=== PATIENT | female | born 1965 | race Caucasian/White ===

== ENCOUNTER → 2024-03-05 14:07 | Outpatient (REF) | payer BC, SELFPAY | LOC: HWWDC 14:07 | PROVIDERS: ATTENDING PHYSICIAN Obstetrics & Gynecology Gynecology; FAMILY PHYSICIAN Nurse Practitioner Family | DX: Z12.31 Encounter for screening mammogram for malignant neoplasm of breast (principal) | CPT/HCPCS: 77063; 77067 ==

== ENCOUNTER → 2024-03-18 08:30 | Outpatient (REF) | payer BC, SELFPAY | LOC: WDC 08:30 | PROVIDERS: ATTENDING PHYSICIAN Obstetrics & Gynecology Gynecology; FAMILY PHYSICIAN Nurse Practitioner Family | DX: R92.8 Other abnormal and inconclusive findings on diagnostic imaging of breast (principal) | CPT/HCPCS: 77065 ==

== ENCOUNTER 2024-06-11 16:30 | Emergency (ER) | payer BC, SELFPAY ==
[2024-06-11 16:40] VITALS: BP 126/100
[2024-06-11 17:09] LABS: % Basophils 0.4 % (0-2); % Eosinophils 0.4 % (0-6); % Lymphocytes 17.1 % (20.5-51.1); % Monocytes 7.6 % (1.7-9.3); % Neutrophils 74.5 % (42.2-75.2); Absolute Lymphocytes 0.9 10^3/uL (1.2-3.4); Absolute Monocytes 0.4 10^3/uL (0.1-0.6); Absolute Neutrophils 3.8 10^3/uL (1.4-6.5); Hematocrit 43.1 % (37.0-47.0); Hemoglobin 14.8 g/dL (12.0-16.0); Mean Corp Hgb Conc. 34.3 g/dL (33.0-37.0); Mean Corpuscular Hgb 32.8 pg (27.0-31.0); Mean Corpuscular Volume 95.6 fL (81.0-99.0); Mean Platelet Volume 10.7 fL (7.4-10.4); Nucleated Red Blood Cells % 0 %; Platelet Count 232 10^3/uL (130-400); Red Blood Cell Count 4.51 10^6/uL (4.20-5.40); Red Cell Dist. Width 12.2 % (11.5-14.5); White Blood Cell Count 5.2 10^3/uL (4.8-10.8)
[2024-06-11 17:18] LABS: INR 0.95; PT 13.2 Sec (11.4-14.6)
[2024-06-11 17:21] LABS: ALT (SGPT) 19 U/L (0-35); AST (SGOT) 20 U/L (14-36); Albumin 5.2 g/dl (3.5-5.0); Alkaline Phosphatase 67 U/L (38-126); Blood Urea Nitrogen 19 mg/dl (7-17); Calcium 10.2 mg/dl (8.4-10.2); Carbon Dioxide 31 mmol/L (22-30); Chloride 98 mmol/L (98-107); Glucose 112 mg/dl (70-99); Potassium 4.4 mmol/L (3.5-5.1); Sodium 135 mmol/L (135-145); Total Bilirubin 0.9 mg/dl (0.2-1.3); Total Protein 7.8 g/dl (6.3-8.2); eGFR > 60.00
[2024-06-11 17:34] LABS: Troponin I < 0.012 ng/ml
[2024-06-11 17:53] LABS: TSH Reflex To Free T4 0.92 uIU/ml (0.47-4.68)
[2024-06-11 18:03] VITALS: BMI 19.9
[2024-06-11 18:16] VITALS: BP 125/70
--- NOTE | 2024-06-11 18:45 | ED.GENMED ---
History of Present Illness
General
Chief Complaint: Anxiety
Time Seen by Provider: 06/11/24 18:16
History of Present Illness
History of Present Illness:
59-year-old female presents the emergency department for evaluation of numerous complaints ongoing for the past 2 weeks. She notes that she woke up in the middle the night 2 weeks ago with heart palpitations and diaphoresis, went to [facility] emergency department where she had a reportedly normal EKG and was diagnosed with anxiety. She was prescribed Ativan and Zoloft. She took the Zoloft for 1 week but did not feel any improvement. Saw her primary care physician earlier this
week and was told to discontinue Zoloft in favor of Lexapro and propranolol. At this point she only took 1 dose of Lexapro last night but felt acutely worse. She reports nausea in the morning, generally poor appetite, and overall fatigue. She
states that she suspects this is all hormonal as she continues to have hot flashes intermittently for the past 10+ years
Past History
Past History
ED Past Medical History: None
ED Past Surgical History: None
Social History
Tobacco: Non-smoker
Personal:
Living: with family
Review of Systems
Review of Systems
Allergies reviewed?: Yes
All Other Systems: ROS reviewed and negative except as documented in HPI and ROS
Phy Exam
Physical Exam
Physical Exam:
GEN: Well appearing, NAD, WDWN
HEENT: Oral mucosa moist, no scleral icterus
Cardiac: Regular rate and rhythm, no murmurs
Lung: No respiratory distress, no tachypnea
MSK: No gross deformity or injuries
Skin: Good color, no pallor or jaundice, no rashes
Neuro: AO x3, moves all extremities freely
Psych: Calm, cooperative
Course
Orders/Labs/Results
Orders:
Orders
06/11/24 16:48
EKG [Electrocardiogram (*1)] Urgent
Reason for Study: Palpitations
EKG- Treatment ONCE
06/11/24 16:57
Complete Blood Count/With Diff Urgent
Comprehensive Metabolic Panel Urgent
Prothrombin Time Urgent
TSH Reflex To Free T4 Urgent
Troponin I Urgent
Abnormal Lab Results
06/11/24
16:57
MCH 32.8 H pg
(27.0-31.0)
MPV 10.7 H fL
(7.4-10.4)
Absolute Lymphs (auto) 0.9 L 10^3/uL
(1.2-3.4)
Lymphocytes % 17.1 L %
(20.5-51.1)
Carbon Dioxide 31 H mmol/L
(22-30)
BUN 19 H mg/dl
(7-17)
Glucose 112 H mg/dl
(70-99)
Albumin 5.2 H g/dl
(3.5-5.0)
06/11/24 16:57
06/11/24 16:57
Vital Signs
Initial and Last Documented VS:
Initial Vital Signs
Temp Pulse Resp BP Pulse Ox
98.8 F 88 17 126/100 99
06/11/24 16:40 06/11/24 16:40 06/11/24 16:40 06/11/24 16:40 06/11/24 16:40
Last Documented Vital Signs
Temp Pulse Resp BP Pulse Ox
98.8 F 71 15 125/70 97
06/11/24 16:40 06/11/24 18:30 06/11/24 18:30 06/11/24 18:16 06/11/24 18:30
MDM/Problems Addressed
MDM/Problems Addressed:
At this point is not clear what the patient's underlying etiology to her symptoms is. She has normal workup. Normal thyroid hormone. Certainly could be anxiety but advised her that she will likely feel worse when initiating an SSRI or SNRI before
feeling any improvement. Recommend continued outpatient primary care follow-up, she will see her active directory engineer this upcoming week and I have recommended she discuss a Holter monitor
*Critical Care Note
Total Time (30-74mins, 75-104mins- exclusive of procedures): Not Applicable
ED Attending Note
-
Portions of this chart may have been created with voice recognition software.� Occasional wrong word or��sound alike� substitutions may have occurred due to the inherent limitations of voice recognition software.
Discharge Plan
Departure
Patient Disposition: Home (Routine Discharge)
Date of Disposition: 06/11/24
Time of Disposition: 18:45
Patient with high blood pressure during this ER visit?: Yes
Discharge Problem:
Heart palpitations, Nausea
Instructions: Anxiety, Adult (DC)
Prescriptions:
No Action
ciprofloxacin HCl [Cipro] 500 MG tablet
500 mg PO R Q12 Qty: 20 0RF
amoxicillin-pot clavulanate 875-125 mg tablet
1 tab PO BID Qty: 14 0RF
Activity Restrictions/Additional Instructions:
Discuss a Holter monitor with your active directory engineer
Do not take the propranolol the day before your active directory engineer visit
Discuss treatment options with your therapist
Interventions
Interventions:
*Risk Screen - Suicide Last Done: 06/11/24 16:46
*General Assessment Last Done: 06/11/24 16:46
*Neglect/Abuse Screening Last Done: 06/11/24 16:46
*ED COVID-19 Vaccine History Last Done: 06/11/24 16:46
*Nursing Disposition Last Done: 06/11/24 19:27
ED-Psychological Assessment Last Done: 06/11/24 18:01
Discharge Date and Time
Discharge Date/Time: 06/11/24 19:28
Print Language: [id number]
== END 2024-06-11 19:28 | disposition home or self-care (01) ==
LOC: EMR 16:30
PROVIDERS: EMERGENCY PHYSICIAN Student in an Organized Health Care Education/Training Program; FAMILY PHYSICIAN Nurse Practitioner Family
DX: R00.2 Palpitations (principal); R11.0 Nausea; F41.9 Anxiety disorder, unspecified; Z79.899 Other long term (current) drug therapy
CPT/HCPCS: 99284; 80053; 84443; 84484; 85025; 85610; 93005

== ENCOUNTER → 2024-09-08 14:41 | Outpatient (REF) | payer BC, SELFPAY | LOC: WDC 14:41 | PROVIDERS: ATTENDING PHYSICIAN Obstetrics & Gynecology Gynecology; FAMILY PHYSICIAN Internal Medicine | DX: R92.8 Other abnormal and inconclusive findings on diagnostic imaging of breast (principal) | CPT/HCPCS: 77061; 77065 ==

== ENCOUNTER → 2025-04-12 15:16 | Outpatient (REF) | payer BC, SELFPAY | LOC: WDC 15:16 | PROVIDERS: ATTENDING PHYSICIAN Obstetrics & Gynecology Gynecology | DX: Z12.31 Encounter for screening mammogram for malignant neoplasm of breast (principal); R92.8 Other abnormal and inconclusive findings on diagnostic imaging of breast | CPT/HCPCS: 77062; 77066 ==